=== PATIENT | male | born 1990 | race Caucasian/White ===

== ENCOUNTER 2017-12-02 09:46 | Emergency (ER) | payer BC ==
[~2017-12-02] VITALS: Ht 182.9 cm; Wt 72.0 kg
[2017-12-02 10:37] LABS: HEMATOCRIT 40.6 % (38.0-50.0); HEMOGLOBIN 14.1 G/DL (12.5-16.6); MCH 30.3 PG (29.0-34.0); MCHC 34.7 G/DL (30.0-36.0); MCV 87.1 FL (86-99); PLATELET COUNT 235 K/uL (156-360); RBC DIS.WIDTH-CV 12.3 % (11.8-14.6); RBC DIS.WIDTH-SD 39.4 % (39-53); RED BLOOD COUNT 4.66 M/uL (4.00-5.50); WHITE BLOOD COUNT 7.6 K/uL (4.1-10.2)
[2017-12-02 10:48] LABS: CHLORIDE 105 mEq/L (99-109); POTASSIUM 3.8 mEq/L (3.7-5.4); SODIUM 140 mEq/L (136-147)
[2017-12-02 10:49] LABS: GLUCOSE 125 mg/dL (70-99)
[2017-12-02 10:53] LABS: CREATININE 1.1 mg/dL (0.6-1.3); GFR ESTIMATE (CALCULATED) > 59 mL/min/ (58.99-99999)
[2017-12-02 10:54] LABS: UREA NITROGEN (BUN) 9 mg/dL (9-23)
[2017-12-02] MEDS ORDERED: ANTIVERT25 MG PO (12:43)
[2017-12-02 12:48] VITALS: BP 127/76
== END 2017-12-02 12:48 | disposition home or self-care (01) ==
LOC: EME 09:46
DX: R42 Dizziness and giddiness (principal); R06.02 Shortness of breath
CPT/HCPCS: 71046; 80048; 85027; 93005; 99281; 99284